=== PATIENT | male | born 1975 | race Caucasian/White ===

== ENCOUNTER → 2022-05-17 | Outpatient (CLI) | payer OTHER ==
[~2022-05-17] MED LIST: ADVI200C5 PO; E-Z-GAS II EFFERVESCENT PACKET (SODIUM BICARB./CITRIC ACID/SIMETHICONE) As Ordered ONE; E-Z-HD 98% w/w 340GM SUSP BTL As Ordered ONE; E-Z-PAQUE 96% w/w SUSP 176GM BTL As Ordered ONE; MOBI4TAB PO; pain cream TOP
== END ==
LOC: M RAD 08:21
PROVIDERS: ATTEND Technician, Other
DX: R07.9 Chest pain, unspecified (principal)